=== PATIENT | male | born 1995 | race American Indian/Alaskan Native ===

== ENCOUNTER 2018-12-25 20:34 | Emergency (ER) | payer BC ==
[2018-12-25 21:25] VITALS: BP 129/70
--- NOTE | 2018-12-25 21:51 | Emergency Department Report ---
- General Chief complaint: Extremity Injury, Lower Stated complaint: RIGHT FOOT PAIN Time Seen by Provider: 12/25/18 21:43 Source: patient Mode of arrival: Ambulatory Limitations: No Limitations - History of Present Illness Initial comments: 23 y/o male comes in for right pain and rash between 4tth and 5th digit for sometime now in last 2 weeks started having drainage. No fever or chills no swelling. MD complaint: rash Onset/Timin -: week(s) Location: R foot (between 4th and 5th toes. ) Quality: burning, aching Consistency: constant Improves with: none Worsens with: none Context: none Associated symptoms: denies other symptoms Treatments Prior to Arrival: none - Related Data Previous Rx's Medication Instructions Recorded Last Taken Type Ibuprofen [Motrin 800 MG tab] 800 mg PO Q8HR PRN #15 tablet 12/25/18 Unknown Rx cephALEXin [Keflex] 500 mg PO Q12HR #20 cap 12/25/18 Unknown Rx Allergies Allergy/AdvReac Type Severity Reaction Status Date / Time No Known Allergies Allergy Unverified 12/25/18 20:42 Abscess Boil HPI - HPI Chief Complaint: Extremity Injury, Lower Stated Complaint: RIGHT FOOT PAIN Time Seen by Provider: 12/25/18 21:43 Home Medications: Previous Rx's Medication Instructions Recorded Last Taken Type Ibuprofen [Motrin 800 MG tab] 800 mg PO Q8HR PRN #15 tablet 12/25/18 Unknown Rx cephALEXin [Keflex] 500 mg PO Q12HR #20 cap 12/25/18 Unknown Rx Allergies/Adverse Reactions: Allergies Allergy/AdvReac Type Severity Reaction Status Date / Time No Known Allergies Allergy Unverified 12/25/18 20:42 ED Review of Systems ROS: Stated complaint: RIGHT FOOT PAIN Other details as noted in HPI Comment: All other systems reviewed and negative ED Past Medical Hx - Past Medical History Previous Medical History?: Yes Additional medical history: 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 - Surgical History Past Surgical History?: Yes Additional Surgical History: Right leg surgery 2016 with compartment Syndrome - Social History Smoking Status: Never Smoker Substance Use Type: None - Medications Home Medications: Home Medications Medication Instructions Recorded Confirmed Last Taken Type Ibuprofen [Motrin 800 MG tab] 800 mg PO Q8HR PRN #15 tablet 12/25/18 Unknown Rx cephALEXin [Keflex] 500 mg PO Q12HR #20 cap 12/25/18 Unknown Rx ED Physical Exam - General Limitations: No Limitations General appearance: alert, in no apparent distress - Head Head exam: Present: atraumatic, normocephalic - Eye Eye exam: Present: normal appearance - ENT ENT exam: Present: mucous membranes moist - Neurological Exam Neurological exam: Present: alert, oriented X3, normal gait - Psychiatric Psychiatric exam: Present: normal affect, normal mood - Expanded Skin Exam Expanded Type of lesion: Present: abscess Distribution of rash: RLE Description of rash: Present: tenderness, swelling, other (drianage) ED Course Vital Signs 12/25/18 12/25/18 20:51 21:15 Temperature 97.7 F 97.7 F Pulse Rate 77 77 Respiratory 20 18 Rate Blood Pressure 129/70 Blood Pressure 129/40 [Right] O2 Sat by Pulse 96 99 Oximetry ED Medical Decision Making - Medical Decision Making 23 y/o male comes in for right pain and rash between 4tth and 5th digit for sometime now in last 2 weeks started having drainage. No fever or chills no swelling. Rx for keflex 500mg bid and Ibuprofen. Critical care attestation.: If time is entered above; I have spent that time in minutes in the direct care of this critically ill patient, excluding procedure time. ED Disposition Clinical Impression: Cellulitis of toe of right foot Disposition: [id number]-01 TO HOME OR SELFCARE Is pt being admited?: No Does the pt Need Aspirin: No Condition: Stable Instructions: Cellulitis (ED) Additional Instructions: Complete antibiotics as prescribed pain medication as needed. Use over the counter antifungal powder, keep foot clean and dry. Prescriptions: cephALEXin [Keflex] 500 mg PO Q12HR #20 cap Ibuprofen [Motrin 800 MG tab] 800 mg PO Q8HR PRN #15 tablet PRN Reason: Pain , Severe (7-10) Referrals: [facility] [Outside] - 3-5 Days
== END 2018-12-25 22:20 | disposition home or self-care (01) ==
LOC: ED 20:34
DX: L03.031 Cellulitis of right toe (principal); Z79.899 Other long term (current) drug therapy
CPT/HCPCS: 99282